=== PATIENT | male | born 1955 | race Caucasian/White ===

== ENCOUNTER → 2024-07-01 09:06 | Outpatient (BNVA) | payer MEDICARE, BC, SELFPAY | PROVIDERS: PCP Family Medicine; Visit Provider Family Medicine | DX: I10 Essential (primary) hypertension (principal); E78.2 Mixed hyperlipidemia; E11.9 Type 2 diabetes mellitus without complications; Z79.4 Long term (current) use of insulin; E03.8 Other specified hypothyroidism; E29.1 Testicular hypofunction; N18.2 Chronic kidney disease, stage 2 (mild); N40.1 Benign prostatic hyperplasia with lower urinary tract symptoms; R39.12 Poor urinary stream; G62.9 Polyneuropathy, unspecified; M96.1 Postlaminectomy syndrome, not elsewhere classified; M54.42 Lumbago with sciatica, left side; M54.41 Lumbago with sciatica, right side; G89.29 Other chronic pain; F51.04 Psychophysiologic insomnia; R10.11 Right upper quadrant pain; H66.91 Otitis media, unspecified, right ear | CPT/HCPCS: 80053; 80061; 82043; 82607; 83036; 84403; 84439; 84443; 85025; 87086 ==

== ENCOUNTER 2024-07-18 07:51 | Outpatient (CLI) | payer MEDICARE, BC, SELFPAY ==
--- NOTE | 2024-07-18 08:30 | MR_ITS ---
WS: [id number] MRI LUMBAR SPINE NONCONTRAST HISTORY: chronic low back pain; failed back pain syndrome; COMPARISON: None available. TECHNIQUE: Sagittal and axial multisequence imaging is submitted. Moderate increase in thoracic kyphosis. Normal lumbar alignment with no compression fractures or marrow edema. Disc spaces are narrowed and desiccated. No fractures or marrow edema. Conus terminates normally at L1-2 disc level. L1-L2: Diffuse annular disc bulging encroaching upon the ventral thecal sac. Subarticular recess encroachment and mild bilateral foraminal stenosis, RIGHT greater than LEFT. L2-L3: Diffuse annular disc bulging with facet and ligamentum flavum hypertrophy. Mild central, subarticular recess and foraminal stenosis. L3-L4: Diffuse annular disc bulging with a moderate central disc protrusion. Marked ligamentum flavum and facet arthritis. Moderate central, subarticular recess and mild foraminal stenosis. L4-L5: Diffuse asymmetric disc bulging encroaching upon the ventral thecal sac and subarticular recesses. Marked ligamentum flavum and facet arthritis. Mild central, subarticular recess and bilateral foraminal stenosis. L5-S1: Diffuse annular disc bulging encroaching upon the ventral thecal sac and S1 nerve roots. Mild central, bilateral subarticular recess and foraminal stenosis. Paravertebral soft tissues are negative. MR/MR lumbar spine wo con* [id number] IMPRESSION: 1. Multilevel central, subarticular recess and foraminal stenosis. Stenosis du e to combination of disc disease with protrusions, marked facet and ligamentum flavum disease. 2. L3-4: Moderate central, subarticular recess and mild foraminal stenosis. 3. L5-S1: Moderate central, bilateral subarticular recess and foraminal stenos is. 4. L1-2: Subarticular disc encroachment by disc and osteophyte disease. Mild s ubarticular recess and foraminal stenosis, RIGHT greater than LEFT. 5. L2-3: Mild central, subarticular recess and foraminal stenosis. 6. L4-5: Mild central, subarticular recess and bilateral foraminal stenosis.
== END 2024-07-18 07:52 | disposition home or self-care (01) ==
PROVIDERS: PCP Family Medicine; Visit Provider Family Medicine
DX: M96.1 Postlaminectomy syndrome, not elsewhere classified (principal); M48.061 Spinal stenosis, lumbar region without neurogenic claudication; M48.07 Spinal stenosis, lumbosacral region; R93.7 Abnormal findings on diagnostic imaging of other parts of musculoskeletal system; M51.369 Other intervertebral disc degeneration, lumbar region without mention of lumbar back pain or lower extremity pain; M47.896 Other spondylosis, lumbar region; M51.379 Other intervertebral disc degeneration, lumbosacral region without mention of lumbar back pain or lower extremity pain
CPT/HCPCS: 72148

== ENCOUNTER → 2024-09-30 08:30 | Outpatient (BNVA) | payer MEDICARE, OTHER, BC, SELFPAY | PROVIDERS: PCP Family Medicine; Visit Provider Family Medicine | DX: I10 Essential (primary) hypertension (principal); E78.2 Mixed hyperlipidemia; E11.9 Type 2 diabetes mellitus without complications; Z79.4 Long term (current) use of insulin; E03.8 Other specified hypothyroidism; E29.1 Testicular hypofunction; N18.2 Chronic kidney disease, stage 2 (mild); N40.1 Benign prostatic hyperplasia with lower urinary tract symptoms; R39.12 Poor urinary stream; G62.9 Polyneuropathy, unspecified; M96.1 Postlaminectomy syndrome, not elsewhere classified; M54.42 Lumbago with sciatica, left side; M54.41 Lumbago with sciatica, right side; G89.29 Other chronic pain; F51.04 Psychophysiologic insomnia; R10.11 Right upper quadrant pain; H66.91 Otitis media, unspecified, right ear; N17.9 Acute kidney failure, unspecified | CPT/HCPCS: 80048; 84403; 85025 ==

== ENCOUNTER → 2025-01-02 08:18 | Outpatient (BNVA) | payer MEDICARE, OTHER, SELFPAY | PROVIDERS: PCP Family Medicine; Visit Provider Family Medicine | DX: E11.9 Type 2 diabetes mellitus without complications (principal); Z79.4 Long term (current) use of insulin; E29.1 Testicular hypofunction; I10 Essential (primary) hypertension; K76.0 Fatty (change of) liver, not elsewhere classified; N18.2 Chronic kidney disease, stage 2 (mild); D64.9 Anemia, unspecified; Z12.5 Encounter for screening for malignant neoplasm of prostate | CPT/HCPCS: 80053; 82270; 82607; 83036; 83550; 84403; 85025; G0103 ==

== ENCOUNTER → 2025-04-03 08:21 | Outpatient (BNVA) | payer MEDICARE, OTHER, SELFPAY | PROVIDERS: PCP Family Medicine; Visit Provider Family Medicine | DX: M25.562 Pain in left knee (principal) | CPT/HCPCS: 85025; 85651; 86140 ==